=== PATIENT | male | born 1935 | race Caucasian/White ===

== ENCOUNTER 2019-08-08 15:30 | Inpatient (IN) | payer MEDICARE, OTHER ==
[~2019-08-08] VITALS: Ht 180.3 cm; Wt 75.8 kg
--- NOTE | 2019-08-08 16:04 | Emergency Department Note ---
History of Present Illnes History of Present Illness Chief Complaint: General Medicine Complaints History of Present Illness This is a 83 year old male arrives to ED with generalized malaise and weakness for the past one week. Chief Complaint Comment Patient in from home with complaints of general malaise, fatigue, weakness and fever for the past week. Patient denies cough, SOB, chills, body aches and nausea and vomiting. Patient does report a decreased appetite but no loss of taste or smell. Historian: Patient Arrival Mode: Car Onset (how long ago): day(s) Severity: mild Onset quality: gradual Duration (how long): day(s) Timing of current episode: intermittent Progression: worsening (BENNIE BILLINGS DO) Past Medical/Family History Physician Review I have reviewed the patient's past medical and family history. Any updates have been documented here. (BENNIE BILLINGS DO) Past Medical History Recent Fever: Yes Clinical Suspicion of Infectio: No New/Unexplained Change in Ment: No Past Medical History: Hypertension Past Surgical History: Hernia Repair (BENNIE BILLINGS DO) Recent Fever: Yes Clinical Suspicion of Infectio: Yes Past Medical History: TIA (JOANN ESCALANTE DO) Social History Smoking Cessation: Never Smoker Alcohol Use: None Any Illegal Drug Use: No (JOANN ESCALANTE DO) Other Last Tetanus: unknown (BENNIE BILLINGS DO) Review of Systems Review of Systems Constitutional: Reports fever, Reports malaise EENTM: Reports no symptoms Cardiovascular: Reports no symptoms Respiratory: Reports no symptoms Gastrointestinal: Reports no symptoms Genitourinary: Reports no symptoms Musculoskeletal: Reports no symptoms Integumentary: Reports no symptoms Neurological: Reports no symptoms Psychological: Reports no symptoms Endocrine: Reports no symptoms Hematological/Lymphatic: Reports no symptoms (JOANN ESCALANTE DO) Physical Exam Related Data Allergies: Coded Allergies: No Known Allergies (Unverified , 08/08/19) Triage Vital Signs Vital Signs Date Time Temp Pulse Resp B/P (MAP) Pulse Ox O2 Delivery O2 Flow Rate FiO2 08/08/19 15:48 98.8 82 26 126/81 98 Vital signs reviewed: Yes (BENNIE BILLINGS DO) Triage Vital Signs Vital Signs Date Time Temp Pulse Resp B/P (MAP) Pulse Ox O2 Delivery O2 Flow Rate FiO2 08/08/19 15:48 98.8 82 26 126/81 98 Vital signs reviewed: Yes (AVAJOANN DO) Physical Exam CONSTITUTIONAL Constitutional: Present well-developed HENT HENT: Present normocephalic, Present atraumatic, Present oropharynx clear/moist, Present nose normal HENT L/R: Present left ext ear normal, Present right ext ear normal EYES Eyes: Reports PERRL, Reports conjunctivae normal NECK Neck: Present ROM normal PULMONARY Pulmonary: Present effort normal, Present breath sounds normal CARDIOVASCULAR Cardiovascular: Present regular rhythm, Present heart sounds normal, Present capillary refill normal, Present normal rate GASTROINTESTINAL Abdominal: Present soft, Present nontender, Present bowel sounds normal GENITOURINARY Genitourinary: Present exam deferred SKIN Skin: Present warm, Present dry MUSCULOSKELETAL Musculoskeletal: Present ROM normal NEUROLOGICAL Neurological: Present alert, Present oriented x 3, Present no gross motor or sensory deficits PSYCHOLOGICAL Psychological: Present mood/affect normal, Present judgement normal (BENNIE BILLINGS DO) Constitutional: Present ill appearing HENT: Present normocephalic, Present atraumatic, Present oropharynx clear/moist, Present nose normal HENT L/R: Present left ext ear normal, Present right ext ear normal Eyes: Reports PERRL, Reports conjunctivae normal Neck: Present ROM normal Pulmonary: Present effort normal, Present breath sounds normal Cardiovascular: Present regular rhythm, Present heart sounds normal, Present capillary refill normal, Present normal rate Abdominal: Present soft, Present nontender, Present bowel sounds normal Genitourinary: Present exam deferred Skin: Present warm, Present dry Musculoskeletal: Present ROM normal Neurological: Present alert, Present oriented x 3, Present no gross motor or sensory deficits Psychological: Present mood/affect normal, Present judgement normal (JAMES AmandaJOANN DO) Results Laboratory Lab results reviewed: Yes Laboratory comments Laboratory Tests Test 08/08/19 17:25 08/08/19 16:08 White Blood Count 5.10 x10e3/uL (4.8-10.8) Red Blood Count 4.76 x10e6/uL (4.3-5.7) Hemoglobin 14.6 g/dL (14.0-18.0) Hematocrit 43.6 % (38.2-49.6) Mean Corpuscular Volume 91.6 fL (81-99) Mean Corpuscular Hemoglobin 30.7 pg (28-32) Mean Corpuscular Hemoglobin Concent 33.5 g/dL (31-35) Red Cell Distribution Width 12.8 % (11.7-14.4) Platelet Count 164 x10e3/uL (140-360) Neutrophils (%) (Auto) 73.9 % (38.7-80.0) Lymphocytes (%) (Auto) 15.1 % (18.0-39.1) Monocytes (%) (Auto) 10.4 % (4.4-11.3) Eosinophils (%) (Auto) 0.0 % (0.0-6.0) Basophils (%) (Auto) 0.2 % (0.0-1.0) Neutrophils # (Auto) 3.8 (2.1-6.9) Lymphocytes # (Auto) 0.8 (1.0-3.2) Monocytes # (Auto) 0.5 (0.2-0.8) Eosinophils # (Auto) 0.0 (0.0-0.4) Basophils # (Auto) 0.0 (0.0-0.1) Absolute Immature Granulocyte (auto 0.02 x10e3/uL (0-0.1) Sodium Level 135 mmol/L (136-145) Potassium Level 4.0 mmol/L (3.5-5.1) Chloride Level 102 mmol/L (98-107) Carbon Dioxide Level 25 mmol/L (22-29) Anion Gap 12.0 mmol/L (8-16) Blood Urea Nitrogen 18 mg/dL (7-26) Creatinine 1.07 mg/dL (0.72-1.25) Estimat Glomerular Filtration Rate > 60 ML/MIN (60-) BUN/Creatinine Ratio 17 (6-25) Glucose Level 137 mg/dL (74-118) Calcium Level 8.7 mg/dL (8.4-10.2) Total Bilirubin 0.5 mg/dL (0.2-1.2) Aspartate Amino Transf (AST/SGOT) 47 IU/L (5-34) Alanine Aminotransferase (ALT/SGPT) 40 IU/L (0-55) Alkaline Phosphatase 49 IU/L (40-150) Creatine Kinase 81 IU/L (30-200) Creatine Kinase MB 0.60 ng/mL (0-5.0) Troponin I 0.179 ng/mL (0-0.300) Total Protein 6.9 g/dL (6.5-8.1) Albumin 3.7 g/dL (3.5-5.0) Globulin 3.2 g/dL (2.3-3.5) Albumin/Globulin Ratio 1.2 (0.8-2.0) (JOANN ESCALANTE DO) Imaging Imaging results reviewed: Yes Impressions [place] [address] Patient Name: CHARLEY SERRANO MR #: [id number] : 1935 Age/Sex: 83/M Req #: [id number] Adm Physician: Ordered by: BENNIE BILLINGS DO Report #: [id number] Location: ER Room/Bed: Procedure: [id number] DX/CHEST SINGLE (PORTABLE) Exam Date: 08/08/19 Exam Time: 1610 REPORT STATUS: Signed EXAMINATION: CHEST SINGLE (PORTABLE) INDICATION: Chest pain COMPARISON: None FINDINGS: AP view TUBES and LINES: None. LUNGS: Bilateral lung base opacities, right greater than left. PLEURA: No pleural effusion or pneumothorax. HEART AND MEDIASTINUM: The cardiomediastinal silhouette is unremarkable. BONES AND SOFT TISSUES: No acute osseous lesion. Advanced shoulder degenerative change. Soft tissues are unremarkable. UPPER ABDOMEN: Elevated right hemidiaphragm. IMPRESSION: Bilateral lung base opacities most suggestive of scarring or atelectasis. Pneumonia, notably in the right lower lobe, may appear similar. Signed by: Reed Chris MD on 08/08/2019 4:49 PM Dictated By: REED CHRIS MD Transcribed By: ALEX on 08/08/191648 COPY TO: BENNIE BILLINGS DO~ (JOANN ESCALANTE DO) Assessment & Plan Medical Decision Making MDM 83 yom with fever and myalgias of several days duration. COVID-19 infection highly suspected and confirmed. Plan to admit for inpatient evaluation and respiratory management (JOANN ESCALANTE DO) Assessment & Plan Final Impression: (1) Upper respiratory tract infection due to COVID-19 virus (JOANN ESCALANTE DO) Depart Disposition: ADMITTED Last Vital Signs Date Time Temp Pulse Resp B/P (MAP) Pulse Ox O2 Delivery O2 Flow Rate FiO2 08/08/19 15:48 98.8 82 26 126/81 98 (BENNIE BILLINGS DO) Last Vital Signs Date Time Temp Pulse Resp B/P (MAP) Pulse Ox O2 Delivery O2 Flow Rate FiO2 08/08/19 21:57 79 22 111/67 96 08/08/19 20:04 98.9 (JOANN ESCALANTE DO) Home Meds Reported Medications Amlodipine Besylate (AMLODIPINE BESYLATE) 2.5 Mg Tablet, PO DAILY 08/09/19 Medications in the ED Acetaminophen 650 mg ONCE ONCE PO Last administered on 08/08/19at 19:20; Admin Dose 650 MG; Start 08/08/19 at 19:15; Stop 08/08/19 at 19:16; Status DC Acetaminophen 650 mg STK-MED ONCE .ROUTE ; Start 08/08/19 at 19:21; Stop 08/08/19 at 19:16; Status DC Azithromycin 250 ml @ 200 mls/hr DAILY IV ; Start 08/09/19 at 09:00; Stop 08/16/19 at 08:59; Status UNV (JOANN ESCALANET DO) BENNIE BILLINGS DO Aug 08, 2019 16:04 JOANN ESCALANTE DO Aug 08, 2019 22:48
[2019-08-08 16:17] LABS: BASOPHILS % 0.2 % (0.0-1.0); HEMATOCRIT 43.6 % (38.2-49.6); HEMOGLOBIN 14.6 g/dL (14.0-18.0); LYMPHOCYTES # (AUTO) 0.8 (1.0-3.2); LYMPHOCYTES % 15.1 % (18.0-39.1); MEAN CORPUSCULAR HEMOGLOBIN 30.7 pg (28-32); MEAN CORPUSCULAR HGB CONC 33.5 g/dL (31-35); MEAN CORPUSCULAR VOLUME 91.6 fL (81-99); MONOCYTES # (AUTO) 0.5 (0.2-0.8); MONOCYTES % 10.4 % (4.4-11.3); NEUTROPHILS # (AUTO) 3.8 (2.1-6.9); NEUTROPHILS % 73.9 % (38.7-80.0); PLATELET COUNT 164 x10e3/uL (140-360); RED BLOOD COUNT 4.76 x10e6/uL (4.3-5.7); RED CELL DISTRIBUTION WIDTH 12.8 % (11.7-14.4)
[2019-08-08 16:37] LABS: ALANINE AMINOTRANSFERASE 40 IU/L (0-55); ALBUMIN 3.7 g/dL (3.5-5.0); ALBUMIN/GLOBULIN RATIO 1.2 (0.8-2.0); ALKALINE PHOSPHATASE 49 IU/L (40-150); BLOOD UREA NITROGEN 18 mg/dL (7-26); BUN/CREATININE RATIO 17 (6-25); CALCIUM 8.7 mg/dL (8.4-10.2); CARBON DIOXIDE 25 mmol/L (22-29); CHLORIDE 102 mmol/L (98-107); CREATINE KINASE 81 IU/L (30-200); CREATININE, SERUM 1.07 mg/dL (0.72-1.25); EST GLOMERULAR FILTRATION RATE > 60 ML/MIN (60-); GLUCOSE 137 mg/dL (74-118); SODIUM 135 mmol/L (136-145)
--- NOTE | 2019-08-08 16:53 | Diagnostic Imaging Report ---
EXAMINATION: CHEST SINGLE (PORTABLE) INDICATION: Chest pain COMPARISON: None FINDINGS: AP view TUBES and LINES: None. LUNGS: Bilateral lung base opacities, right greater than left. PLEURA: No pleural effusion or pneumothorax. HEART AND MEDIASTINUM: The cardiomediastinal silhouette is unremarkable. BONES AND SOFT TISSUES: No acute osseous lesion. Advanced shoulder degenerative change. Soft tissues are unremarkable. UPPER ABDOMEN: Elevated right hemidiaphragm. IMPRESSION: Bilateral lung base opacities most suggestive of scarring or atelectasis. Pneumonia, notably in the right lower lobe, may appear similar. Signed by: Reed Stubbs MD on 08/08/2019 4:49 PM
[2019-08-08] MEDS ORDERED: ACETAMINOPHEN 325 MG TAB PO ONE (19:15)
[2019-08-08] MEDS ORDERED: ACETAMINOPHEN 325 MG TAB ONE (19:21)
[2019-08-08] MEDS: AZITHROMYCIN 500MG/NS 250 ML 250 ML IV SCH (23:02)
[2019-08-08] MEDS ORDERED: ACETAMINOPHEN 325 MG TAB PO PRN (23:30)
[2019-08-09] VITALS (10 sets, daily range): BP systolic 92–134; BP diastolic 65–81
--- NOTE | 2019-08-09 03:46 | NUR ---
Spoke with Dr. Serra regarding consult for new admit. Dr. Serra returned call from ED MD.
[2019-08-09 05:29] LABS: BASOPHILS % 0.2 % (0.0-1.0); EOSINOPHILS % 0.2 % (0.0-6.0); HEMATOCRIT 43.1 % (38.2-49.6); HEMOGLOBIN 14.2 g/dL (14.0-18.0); LYMPHOCYTES # (AUTO) 0.8 (1.0-3.2); LYMPHOCYTES % 15.8 % (18.0-39.1); MEAN CORPUSCULAR HEMOGLOBIN 30.8 pg (28-32); MEAN CORPUSCULAR HGB CONC 32.9 g/dL (31-35); MEAN CORPUSCULAR VOLUME 93.5 fL (81-99); MONOCYTES # (AUTO) 0.6 (0.2-0.8); MONOCYTES % 11.8 % (4.4-11.3); NEUTROPHILS # (AUTO) 3.7 (2.1-6.9); NEUTROPHILS % 71.4 % (38.7-80.0); PLATELET COUNT 161 x10e3/uL (140-360); RED BLOOD COUNT 4.61 x10e6/uL (4.3-5.7); RED CELL DISTRIBUTION WIDTH 12.8 % (11.7-14.4)
[2019-08-09 05:46] LABS: ALANINE AMINOTRANSFERASE 36 IU/L (0-55); ALBUMIN 3.5 g/dL (3.5-5.0); ALBUMIN/GLOBULIN RATIO 1.2 (0.8-2.0); ALKALINE PHOSPHATASE 46 IU/L (40-150); ANION GAP 12.9 mmol/L (8-16); BLOOD UREA NITROGEN 16 mg/dL (7-26); BUN/CREATININE RATIO 20 (6-25); CALCIUM 8.3 mg/dL (8.4-10.2); CARBON DIOXIDE 23 mmol/L (22-29); CHLORIDE 104 mmol/L (98-107); CREATININE, SERUM 0.82 mg/dL (0.72-1.25); EST GLOMERULAR FILTRATION RATE > 60 ML/MIN (60-); GLUCOSE 101 mg/dL (74-118); POTASSIUM 3.9 mmol/L (3.5-5.1); SODIUM 136 mmol/L (136-145)
--- NOTE | 2019-08-09 06:05 | NUR ---
Spoke with Dr. Angela Mcclain re: new consult for patient.
[2019-08-09] MEDS ORDERED: AMLODIPINE BESIL1 GM (06:21)
[2019-08-09] MEDS ORDERED: AMLODIPINE BES2.5 MG PO (06:21)
[2019-08-09] MEDS ORDERED: SODIUM CHLORIDE 0.9% 250ML 250 ML ONE (08:03)
[2019-08-09] MEDS: AZITHROMYCIN 500MG/NS 250 ML 250 ML IV SCH (08:54)
[2019-08-09] MEDS ORDERED: AZITHROMYCIN 500MG/NS 250 ML 250 ML IV SCH (09:00)
[2019-08-09] MEDS ORDERED: ZOLPIDEM TARTRATE 5 MG TAB PO PRN (11:30)
[2019-08-09] MEDS: CEFTRIAXONE SOD 1 GM/NS 50 ML 50 ML IV SCH (11:46)
--- NOTE | 2019-08-09 12:46 | Consultation ---
DATE OF CONSULTATION: Pulmonary Critical Care Consultation HISTORY OF PRESENT ILLNESS: The patient is reporting fatigue and malaise for the past week. He is unsure about fevers. He denies shortness of breath. He has minimal cough. He has no gastrointestinal symptoms. PAST MEDICAL HISTORY: 1. Borderline diabetes. 2. Hypertension. PAST SURGICAL HISTORY: Noncontributory. ALLERGIES: NO KNOWN DRUG ALLERGIES. FAMILY HISTORY: Noncontributory. SOCIAL HISTORY: The patient has never been a smoker. He is not a drinker. REVIEW OF SYSTEMS: He denies fevers. He complains of malaise and fatigue for about a week. He has no headache. He has no neck pain. He is not complaining of cough. There is no wheezing. He has no chest pain. He is not having any nausea or vomiting. He has no leg edema. PHYSICAL EXAMINATION: VITAL SIGNS: The patient is afebrile. The blood pressure is 104/65, saturation is 96% on 2 L, and the pulse is 75. HEENT: Shows no facial swelling or erythema. CARDIAC: Reveals regular rate and rhythm with normal S1 and S2. LUNGS: Auscultation of lungs reveals rhonchorous breath sounds bilaterally. There is no wheezing. ABDOMEN: Soft and nontender. There is no rebound or guarding. EXTREMITIES: Shows no leg edema or calf tenderness. There is no cyanosis or clubbing. SKIN: Shows no rashes. NEUROLOGICAL: Shows no focal abnormalities. LABORATORY DATA: White blood cell count is 5.2 and the hemoglobin is 14.2. The platelet count is 161. BUN to creatinine ratio is 16 to 0.82. Other electrolytes are within normal limits. RADIOGRAPHIC DATA: Shows bilateral pulmonary infiltrates suggestive of pneumonia. IMPRESSION: 1. Viral pneumonia and COVID-19 infection. 2. Mild hypertension. 3. Acute kidney injury. PLAN: 1. The patient will continue on Zithromax and Rocephin. 2. Lovenox for DVT prophylaxis. 3. Echocardiogram. 4. Discussed use of remdesivir and dexamethasone with Infectious Disease. 5. Out of bed as tolerated. 6. Oxygen is needed. Antoine Mcclain MD LM/CHIQUIS /[id number]
[2019-08-09] MEDS ORDERED: GUAIFENESIN/CODEINE 10 ML CUP PO PRN (15:15)
[2019-08-09] MEDS ORDERED: HYDRALAZINE HCL 20 MG/ML VIAL IV PRN (15:15)
[2019-08-09] MEDS ORDERED: BENZONATATE 100 MG CAP PO PRN (15:15)
[2019-08-09] MEDS ORDERED: DOCUSATE SODIUM 100 MG CAP PO PRN (15:15)
[2019-08-09] MEDS ORDERED: HYDROCODONE/APAP 5MG-325MG TAB PO PRN (15:15)
[2019-08-09] MEDS: ENOXAPARIN SOD INJ 40 MG/0.4 ML SYR SC SCH (16:15)
[2019-08-09] MEDS: ASCORBIC ACID 500 MG TAB PO SCH (16:15)
[2019-08-09] MEDS: ACETAMINOPHEN 325 MG TAB PO PRN (16:53)
--- NOTE | 2019-08-09 17:53 | Consultation ---
DATE OF CONSULTATION: REASON FOR CONSULTATION: COVID-19 pneumonia. HISTORY OF PRESENT ILLNESS: This is a very pleasant 83-year-old gentleman, history of hypertension, who is otherwise healthy. He has been going to several bars recently. He started to feel really bad the last week or so. No specific shortness of breath, but malaise and really fatigued and feverish. His daughter, who was is an RN told him to come to the hospital to be checked because he was getting worse in last couple days. In the emergency room, he was evaluated and he was positive for COVID-19. The patient is being admitted. PAST MEDICAL HISTORY: Hypertension. PAST SURGICAL HISTORY: Denies. ALLERGIES: NKA. SOCIAL HISTORY: There is no smoking, drug abuse, or alcohol abuse. FAMILY HISTORY: Otherwise unremarkable. REVIEW OF SYSTEMS: Beside the fatigue, feeling feverish, feeling a little bit short of breath. Otherwise he is okay. PHYSICAL EXAMINATION: GENERAL: Currently alert and oriented. VITAL SIGNS: Stable, afebrile. HEENT: He is not icteric. NECK: Supple. CHEST: Few crackles bilateral bases. HEART: S1 and S2. No S3, S4, or murmur. ABDOMEN: Soft. Bowel sounds present. No tenderness. EXTREMITIES: No edema. SKIN: No rash. DIAGNOSTIC DATA: Chest x-ray showed bilateral lung base opacities. IMPRESSION: COVID-19, present on admission, COVID-19 pneumonia. Concerned about superimposed bacterial pneumonia. He is currently on 2 L. We will put him on Rocephin and azithromycin. Plan on 5 days course. Also, low dose of Lovenox for prophylaxis. Vitamin C and zinc and vitamin D supplement. We will assess daily. Discussed with the patient. Discussed with his daughter. MD WAYLON Lubin/CHIQUIS /[id number]
--- NOTE | 2019-08-09 19:08 | NUR ---
Received report from 7a-7p nurse. Reported ECHO not done. will follow up.
--- NOTE | 2019-08-09 19:43 | History and Physical ---
CHIEF COMPLAINT: Cough, shortness of breath. HISTORY OF PRESENT ILLNESS: An 83-year-old male, history of hypertension, comes into the ED with 5 to 7 days history of cough, congestion, and shortness of breath. The patient was found to be coronavirus positive. The patient reports going to a local dance for dancing. He reportedly dance 3 times per week. He feels that he may have contracted there. Denies any chest pain, palpitation, nausea, or vomiting. Reports shortness of breath, cough, and an elevated fever at home. The patient is seen and evaluated at bedside in the medical floor. He is currently doing well with no other issues at this time. REVIEW OF SYSTEMS: Pertinent positives: Shortness of breath, cough, congestion, lethargy. The rest of 14-point review of systems are reviewed with the patient and are negative. ALLERGIES: NO KNOWN DRUG ALLERGIES. HOME MEDICATIONS: Amlodipine 2.5 mg daily. PAST MEDICAL HISTORY: Hypertension. PAST SURGICAL HISTORY: Reports none. FAMILY HISTORY: Hypertension and diabetes. SOCIAL HISTORY: No drugs. No alcohol. Does not smoke. Good social support. PHYSICAL EXAMINATION: VITAL SIGNS: Temperature is 98.6, pulse 81 respiratory rate is 17, blood pressure 111/64, and pulse ox 94% on room air. GENERAL: Not in acute distress. Alert and oriented x3. Cooperative on examination. HEENT: Head; normocephalic, atraumatic. Eyes; pupils are equal, round, and reactive to light bilaterally. Extraocular movements intact bilaterally. Throat; no evidence of erythema or exudates in the posterior pharynx. Has poor dentition. NECK: Supple. Good range of motion. PULMONARY: Clear to auscultation bilaterally. No wheezing, no rales, no rhonchi, no crackles appreciated. CARDIOVASCULAR: Positive S1 and S2. No murmurs, rubs, or gallops appreciated. ABDOMEN: Soft, nondistended, and nontender to palpation. Bowel sounds present. MUSCULOSKELETAL: Strength is 5/5 throughout. No evidence of any muscle deficits on examination. No weakness appreciated. NEUROLOGIC: Cranial nerves 2 through 12 grossly intact. No evidence of any neurological deficits on exam. SKIN: Intact. Warm to touch. Good cap refill. PSYCHIATRIC: Normal affect and mood. EXTREMITIES: No edema. Good range of motion throughout. LABORATORY DATA: Show white count 5.1, hemoglobin 14, hematocrit is 43, and platelets of 161. Chemistry; sodium 136, potassium 3.9, chloride 104, bicarb 23, anion gap of 12, BUN is 16, creatinine is 0.82, glucose 101, and calcium is 8.3. Total bilirubin is 0.5, AST 43, ALT 36, and alkaline phosphatase 46. Troponin 0.179. Albumin 3.5. Serologies; coronavirus was detected. IMAGING STUDIES: Bilateral lung base opacities most suggestive of scarring or atelectasis. Pneumonia notably in the right lower lobe may appear similarly. IMPRESSION: 1. Mild shortness of breath secondary to COVID-19 pneumonia/viral pneumonia. 2. Hypertension. 3. Mild acute kidney injury. PLAN: At this time, continue with IV antibiotics. He is on ProAir. As for remdesivir and dexamethasone. The patient is doing very well. Less likely, we will need that at this current moment, but we will defer this to ID. We will trend troponins. Resume same home medications. Lovenox for DVT prophylaxis. Add anti-tussives. Get PT/OT evaluation. MD DAVID Araujo/MODL /[id number]
--- NOTE | 2019-08-09 22:20 | NUR ---
Resumed care of patient. Patient resting quietly in bed, respirations even and unlabored, no s/s of distress at this time. Bed locked and in lowest position, side rails up x3, call light and belongings placed within reach. All safety measures in place. Will continue to monitor.
[2019-08-10] VITALS (8 sets, daily range): BP systolic 110–129; BP diastolic 53–84
[2019-08-10] MEDS: ACETAMINOPHEN 325 MG TAB PO PRN (03:51)
[2019-08-10 06:01] LABS: BASOPHILS % 0.2 % (0.0-1.0); EOSINOPHILS % 0.2 % (0.0-6.0); HEMOGLOBIN 13.7 g/dL (14.0-18.0); LYMPHOCYTES # (AUTO) 0.8 (1.0-3.2); LYMPHOCYTES % 15.4 % (18.0-39.1); MEAN CORPUSCULAR HEMOGLOBIN 31.3 pg (28-32); MEAN CORPUSCULAR HGB CONC 33.4 g/dL (31-35); MEAN CORPUSCULAR VOLUME 93.6 fL (81-99); MONOCYTES # (AUTO) 0.8 (0.2-0.8); MONOCYTES % 14.5 % (4.4-11.3); NEUTROPHILS # (AUTO) 3.7 (2.1-6.9); PLATELET COUNT 164 x10e3/uL (140-360); RED BLOOD COUNT 4.38 x10e6/uL (4.3-5.7); RED CELL DISTRIBUTION WIDTH 12.8 % (11.7-14.4)
[2019-08-10 06:38] LABS: ALANINE AMINOTRANSFERASE 28 IU/L (0-55); ALBUMIN 3.3 g/dL (3.5-5.0); ALBUMIN/GLOBULIN RATIO 1.1 (0.8-2.0); ALKALINE PHOSPHATASE 43 IU/L (40-150); ANION GAP 11.9 mmol/L (8-16); BLOOD UREA NITROGEN 15 mg/dL (7-26); BUN/CREATININE RATIO 18 (6-25); CALCIUM 8.1 mg/dL (8.4-10.2); CARBON DIOXIDE 24 mmol/L (22-29); CHLORIDE 104 mmol/L (98-107); CREATININE, SERUM 0.82 mg/dL (0.72-1.25); EST GLOMERULAR FILTRATION RATE > 60 ML/MIN (60-); GLUCOSE 93 mg/dL (74-118); POTASSIUM 3.9 mmol/L (3.5-5.1); SODIUM 136 mmol/L (136-145)
[2019-08-10] MEDS: ASCORBIC ACID 500 MG TAB PO SCH ×2 (08:53→16:50)
[2019-08-10] MEDS: ZINC SULFATE 220 MG CAP PO SCH (08:53)
[2019-08-10] MEDS: CHOLECALCIFEROL 400 UNIT TAB PO SCH (08:53)
[2019-08-10] MEDS: AZITHROMYCIN 500MG/NS 250 ML 250 ML IV SCH (08:53)
[2019-08-10] MEDS: CEFTRIAXONE SOD 1 GM/NS 50 ML 50 ML IV SCH (12:25)
--- NOTE | 2019-08-10 14:32 | Progress Note ---
DATE: Pulmonary Critical Care Progress Note SUBJECTIVE: The patient is more fatigued. He had some gastrointestinal symptoms. He denies cough or dyspnea. He is not having any chest pain. PHYSICAL EXAMINATION: VITAL SIGNS: The patient is afebrile. The blood pressure is 110/53, saturation is 96%. The pulse is 73. HEENT: No facial swelling or erythema. CARDIAC: Regular rate and rhythm with normal S1, S2. LUNGS: Auscultation of lungs reveals rhonchorous breath sounds bilaterally. There is no wheezing. ABDOMEN: Soft, nontender. There is no rebound or guarding. EXTREMITIES: No leg edema or calf tenderness. There is no cyanosis or clubbing. SKIN: No rashes. LABORATORY DATA: BUN to creatinine ratio is normal. The sodium is 136 and the total protein is 6.2. The albumin is 3.3. The white blood cell count is 5.38 and hemoglobin is 13.7, and the platelet count is 164. IMPRESSION: 1. Viral pneumonia and coronavirus disease-19 infection. 2. Gastroenteritis. 3. Acute kidney injury. PLAN: 1. Stop Rocephin and continue Zithromax because of GI symptoms. 2. Monitor electrolytes and use IV fluids as needed. 3. Await echocardiogram. 4. Lovenox. 5. Physical therapy evaluation. Antoine Mcclain MD [facility]/MODL /[id number]
[2019-08-10] MEDS: ENOXAPARIN SOD INJ 40 MG/0.4 ML SYR SC SCH (16:50)
[2019-08-10] MEDS ORDERED: BISMUTH SUBSALICYLATE 262 MG/15 ML 8OZ BTL PO PRN (17:30)
[2019-08-10] MEDS ORDERED: CHOLESTYRAMINE 4 GM PACKET PO PRN (17:30)
--- NOTE | 2019-08-10 17:30 | NUR ---
Nutrition Screen Note RD Recommendation for Physician: -Continue current diet as ordered -If PO intake <50% of meals, offer Ensure Enlive Plan of Care: RD following, monitoring for tolerance and adequacy Nutrition reason for involvement: Nutrition Risk Trigger MST 3 Primary Diagnose(s): COVID-19 PMH: HTN Ht: 71 in Wt:167 lb BMI: 23.4 kg/m2 IBW:[address] Assessment: (08/10/19) Chart reviewed. Labs and meds reviewed. Pt is an 83 year old male admitted with COVID-19. Unable to enter room due to isolation precautions; therefore, attempted to call pt over the phone but he did not answer. There are no previous weights in chart and meal intake is not recorded. Unable to complete nutrition assessment at this time. Will continue to monitor Current Diet: cardiac Malnutrition Evaluation (08/10/19) Unable to assess. Will re-evaluate at follow-up as appropriate. Diet Education Needs Assessment: RD is available for diet education as needed Nutrition Care Level: low Signed: Joanna Burns, RD, LD
--- NOTE | 2019-08-10 18:03 | Progress Note ---
DATE: SUBJECTIVE: Mr. Lynn is feeling fatigued today. He is having diarrhea. He has slightly cough. No fever. No chills. REVIEW OF SYSTEMS: Otherwise, there is nothing new. LABORATORY DATA: Reviewed. PHYSICAL EXAMINATION: VITAL SIGNS: His temperature 100.3, heart rate 87, and respiration 18. HEENT: He is not icteric. NECK: Supple. CHEST: Crackles. HEART: S1 and S2. No S3, S4, or murmur. ABDOMEN: Soft. IMPRESSION: 1. Diarrhea, could be drug-related antibiotic, so we will discontinue azithromycin, we will discontinue Rocephin. 2. Also, could be gastroenteritis from COVID-19. 3. COVID-19 pneumonia. 4. Debility. 5. I am going to give him Pepto-Bismol one p.o. q.4 hours p.r.n., Questran one pack p.o. b.i.d. p.r.n. Hold off antibiotic for now. Reassess in the morning. Discussed with the patient. Discussed with the family. We will follow. MD WAYLON uLbin/CHIQUIS /[id number]
--- NOTE | 2019-08-10 19:20 | NUR ---
Resumed care of patient. Patient awake and resting in bed, vital signs stable, no s/s of distress at this time. Bed locked and in lowest position, side rails upx3, call light placed within reach. Patient instructed to call for assistance if needed, verbalized understanding. All safety measures in place. Will continue to monitor.
[2019-08-10] MEDS ORDERED: ONDANSETRON HCL INJ 2MG/ML 2ML 2 MG/ML VIAL IV PRN (19:45)
--- NOTE | 2019-08-10 19:45 | NUR ---
Dr. Morgan here to see patient. Received orders for Zofran 4 mg IV Q6H PRN.
--- NOTE | 2019-08-10 21:14 | Progress Note ---
DATE: 08/10/2019 Medicine Progress Note SUBJECTIVE: The patient is doing much better today with no complaints. He is on room air. No overnight events. PHYSICAL EXAMINATION: VITAL SIGNS: Temperature 99.2, pulse 83, respiratory rate is 20, blood pressure 111/75, and pulse ox 96% on room air. GENERAL: Not in acute distress. Alert and oriented x3. Cooperative on examination. HEENT: Head; normocephalic, atraumatic. Eyes; pupils are equal, round, and reactive to light bilaterally. Extraocular movements intact bilaterally. Throat; no evidence of erythema or exudates in the posterior pharynx. Has poor dentition. NECK: Supple. Good range of motion. PULMONARY: Clear to auscultation bilaterally. No wheezing, no rales, no rhonchi, no crackles appreciated. CARDIOVASCULAR: Positive S1 and S2. No murmurs, rubs, or gallops appreciated. ABDOMEN: Soft, nondistended, and nontender to palpation. Bowel sounds present. MUSCULOSKELETAL: Strength is 5/5 throughout. No evidence of any muscle deficits on examination. No weakness appreciated. NEUROLOGIC: Cranial nerves 2 through 12 grossly intact. No evidence of any neurological deficits on exam. SKIN: Intact. Warm to touch. Good cap refill. PSYCHIATRIC: Normal affect and mood. EXTREMITIES: No edema. Good range of motion throughout. LABORATORY FINDINGS: Show white count 5.3, hemoglobin 13.7, hematocrit is 41, and platelets of 164. Chemistry; sodium 136, potassium 3.9, chloride 104, bicarb 24, anion gap of 11.9, BUN is 15, creatinine is 0.82, and calcium is 8.1. LFTs within normal range. Albumin 3.3. IMPRESSION: 1. COVID-19 pneumonia/viral pneumonia. 2. Shortness of breath secondary to #1, now on room air. 3. Mild acute kidney injury. 4. Diarrhea. PLAN: At this time, antibiotics were discontinued by Infectious Disease. He was placed on some Pepto-Bismol for his diarrhea. We will monitor very closely. He is on Questran p.r.n. as well. He is otherwise doing very well. We will see how he does tomorrow. Get a.m. labs. If he is stable, we can discharge him tomorrow. We will talk with the family as well to see if they are comfort level. He is on Lovenox for DVT prophylaxis. MD DAVID Araujo/CHIQUIS /[id number]
[2019-08-11] VITALS (8 sets, daily range): BP systolic 110–147; BP diastolic 62–96
[2019-08-11 05:18] LABS: BASOPHILS % 0.2 % (0.0-1.0); EOSINOPHILS % 0.2 % (0.0-6.0); HEMATOCRIT 40.9 % (38.2-49.6); HEMOGLOBIN 13.7 g/dL (14.0-18.0); LYMPHOCYTES # (AUTO) 0.9 (1.0-3.2); MEAN CORPUSCULAR HEMOGLOBIN 30.4 pg (28-32); MEAN CORPUSCULAR HGB CONC 33.5 g/dL (31-35); MEAN CORPUSCULAR VOLUME 90.7 fL (81-99); MONOCYTES # (AUTO) 0.7 (0.2-0.8); MONOCYTES % 12.8 % (4.4-11.3); NEUTROPHILS # (AUTO) 3.7 (2.1-6.9); PLATELET COUNT 191 x10e3/uL (140-360); RED BLOOD COUNT 4.51 x10e6/uL (4.3-5.7)
[2019-08-11 06:04] LABS: ANION GAP 14.9 mmol/L (8-16); BLOOD UREA NITROGEN 15 mg/dL (7-26); BUN/CREATININE RATIO 20 (6-25); CALCIUM 8.2 mg/dL (8.4-10.2); CARBON DIOXIDE 23 mmol/L (22-29); CHLORIDE 104 mmol/L (98-107); CREATININE, SERUM 0.76 mg/dL (0.72-1.25); EST GLOMERULAR FILTRATION RATE > 60 ML/MIN (60-); GLUCOSE 83 mg/dL (74-118); POTASSIUM 3.9 mmol/L (3.5-5.1); SODIUM 138 mmol/L (136-145)
[2019-08-11] MEDS: CHOLECALCIFEROL 400 UNIT TAB PO SCH (08:56)
[2019-08-11] MEDS: ASCORBIC ACID 500 MG TAB PO SCH ×2 (08:56→18:52)
[2019-08-11] MEDS: ZINC SULFATE 220 MG CAP PO SCH (08:56)
--- NOTE | 2019-08-11 14:12 | Progress Note ---
DATE: SUBJECTIVE: The patient has less dyspnea and no cough. He did have an episode of diarrhea. He also complains of some difficulty eating and decreased appetite. PHYSICAL EXAMINATION: VITAL SIGNS: The blood pressure is 122/96 and saturation is 96%. HEENT: Shows no facial swelling or erythema. CARDIAC: Reveals a regular rate and rhythm with normal S1 and S2. LUNGS: Auscultation of lungs reveals rhonchorous breath sounds bilaterally. There is no wheezing. ABDOMEN: Soft and nontender. There is no rebound or guarding. EXTREMITIES: Shows no leg edema or calf tenderness. There is no cyanosis or clubbing. SKIN: Shows no rashes. NEUROLOGICAL: Shows no focal abnormalities. LABORATORY DATA: White blood cell count is 5.3 and the hemoglobin is 13.7. The platelet count is 191. BUN to creatinine ratio is normal. Other electrolytes are within normal limits. IMPRESSION: 1. Viral pneumonia and COVID-19 infection. 2. Gastroenteritis. 3. Acute kidney injury. PLAN: 1. Okay for discharge home. 2. Medication for symptomatic relief for diarrhea. 3. Physical therapy. Antoine Mcclain MD [facility]/MODL /[id number]
--- NOTE | 2019-08-11 14:14 | NUR ---
CM called pt in room and explained IMM letter. He verbalized understanding. Signed copy in chart. Copy given to RN to give to pt.
--- NOTE | 2019-08-11 18:00 | NUR ---
Dr. Serra held discharge due to patient feeling faint upon ambulation. orders entered. dr alejandra made aware.
[2019-08-11] MEDS: ENOXAPARIN SOD INJ 40 MG/0.4 ML SYR SC SCH (18:52)
[2019-08-11 18:56] LABS: ABG HCO3 21 mmol/L (22-26); ABG PCO2 31 mmHg (35-45); ABG PH 7.44 (7.35-7.45); ABG PO2 59 mmHg (80-105)
--- NOTE | 2019-08-11 19:28 | Progress Note ---
DATE: SUBJECTIVE: Mr. Lynn was feeling better today. He was ready to discharge, however, he went to the restroom. In the restroom, had a bowel movement, he almost passed out and fell. He felt really oozy and came back to bed, almost fell again. He is currently feeling better. REVIEW OF SYSTEMS: At present time, he is just weak and oozy. He said he is feeling worse now than this morning. PHYSICAL EXAMINATION: GENERAL: He is currently alert and oriented. Does not seem to be in acute distress. VITAL SIGNS: Stable, currently afebrile. HEENT: Not icteric. NECK: Supple. CHEST: Clear. HEART: S1 and S2. No S3, S4, or murmur. ABDOMEN: Soft. IMPRESSION: Worsening condition, not so sure why. We will get an ABG, Doppler of bilateral lower extremities to rule out DVT. We will get echocardiogram. We will re-evaluate his O2 saturation again. He may need to go home with home oxygen. Discussed with the patient. Discussed with family. MD WAYLON Lubin/CH[facility]QUIS /[id number]
[2019-08-11] MEDS ORDERED: REMDESIVIR 200MG/NS 100ML 200 MG IV ONE (20:00)
[2019-08-12] VITALS (9 sets, daily range): BP systolic 112–121; BP diastolic 71–79
--- NOTE | 2019-08-12 00:55 | Progress Note ---
DATE: 08/11/2019 SUBJECTIVE: The patient was doing well when I evaluated him early this afternoon. He was not short of breath. He was saturating well on room air. No evidence of any diarrhea. Later in the day, the patient almost had a syncopal episode prompting cancelling the discharge. Cardiology was consulted. Discussed case with ID. PHYSICAL EXAMINATION: VITAL SIGNS: Temperature is 98.8, pulse 83, respiratory rate 20, blood pressure 144/75, pulse ox 94%, he is on 2 L nasal cannula now, earlier in the day when I evaluated him at approximately 1:30 his vitals were temperature 99.2, pulse 78, respiratory rate 19, blood pressure 116/75, pulse ox was 98% on room air. GENERAL: Not in acute distress, alert and oriented x3. Cooperative on exam. PULMONARY: Clear to auscultation bilaterally. No wheezing, rales, or rhonchi. No crackles appreciated. CARDIOVASCULAR: Positive S1, S2. No murmurs, rubs, or gallops appreciated. ABDOMEN: Soft, nondistended, and nontender to palpation. Bowel sounds present. MUSCULOSKELETAL: Strength is 5/5 throughout. No evidence of muscle deficits on examination. NEUROLOGICAL: Cranial nerves II through XII grossly intact. No evidence of any neurological deficits on exam. SKIN: Intact. Warm to touch. Good cap refill. PSYCHIATRIC: Normal affect and mood. EXTREMITIES: No edema. Good range of motion throughout. LABORATORY DATA: CBC stable. Chemistries were normal. Microbiology none. Imaging studies none. IMPRESSION: 1. COVID pneumonia/viral pneumonia. 2. Shortness of breath secondary to #1, was on room air, now on 2 L nasal cannula. 3. Acute kidney injury-resolved. 4. Diarrhea improving. PLAN: At this time, once again the patient was in the process of being discharged early this afternoon, but later in the day he had almost a syncopal episode in which he became very lightheaded. Discharge has been canceled. Spoke with ID and Pulmonary as well. He is on Pepto-Bismol for underlying diarrhea. Continue with symptomatic treatment. Cardiology has been consulted, 2D echo has been ordered. Continue with Lovenox for DVT prophylaxis. We will get morning chest x-ray and morning labs. Lower extremity venous Doppler ordered as well as 2D echo. Otherwise, we will monitor the patient very closely. Discussed plan of care with nursing staff and family. MD DAVID Araujo/CH[facility]QU[facility] /[id number]
[2019-08-12 06:25] LABS: BASOPHILS % 0.1 % (0.0-1.0); EOSINOPHILS % 0.1 % (0.0-6.0); HEMATOCRIT 41.9 % (38.2-49.6); LYMPHOCYTES # (AUTO) 0.9 (1.0-3.2); LYMPHOCYTES % 13.2 % (18.0-39.1); MEAN CORPUSCULAR HEMOGLOBIN 30.4 pg (28-32); MEAN CORPUSCULAR HGB CONC 33.4 g/dL (31-35); MEAN CORPUSCULAR VOLUME 91.1 fL (81-99); MONOCYTES # (AUTO) 0.8 (0.2-0.8); MONOCYTES % 11.5 % (4.4-11.3); NEUTROPHILS % 74.5 % (38.7-80.0); PLATELET COUNT 200 x10e3/uL (140-360); RED CELL DISTRIBUTION WIDTH 13.1 % (11.7-14.4)
[2019-08-12 06:42] LABS: ANION GAP 13.9 mmol/L (8-16); BLOOD UREA NITROGEN 17 mg/dL (7-26); BUN/CREATININE RATIO 22 (6-25); CALCIUM 8.6 mg/dL (8.4-10.2); CARBON DIOXIDE 23 mmol/L (22-29); CHLORIDE 105 mmol/L (98-107); CREATININE, SERUM 0.79 mg/dL (0.72-1.25); EST GLOMERULAR FILTRATION RATE > 60 ML/MIN (60-); GLUCOSE 86 mg/dL (74-118); POTASSIUM 3.9 mmol/L (3.5-5.1); SODIUM 138 mmol/L (136-145)
--- NOTE | 2019-08-12 07:53 | Diagnostic Imaging Report ---
Examination: Single AP view of the chest. COMPARISON: Portable chest 08/08/2019 INDICATION: Shortness of breath, COVID IMPRESSION: 1. Lines and Tubes: None 2. Stable elevation of the right hemidiaphragm, which may be due to eventration. Bilateral basal airspace opacities, which are essentially unchanged, likely reflecting atelectasis, however, pneumonia is also a consideration. Patchy airspace opacity in the left midlung is more prominent on today's exam, suggesting pneumonia 3. Cardiomediastinal silhouette is normal. Central venous congestion. 4. No acute bony abnormalities. Signed by: Dr. Eugene Shanks M.D. on 08/12/2019 7:50 AM
--- NOTE | 2019-08-12 08:50 | Consultation ---
DATE OF CONSULTATION: 08/12/2019 REASON FOR CONSULTATION: Rule out CHF and DVT. CHIEF COMPLAINT: Shortness of breath, COVID positive. HISTORY OF PRESENT ILLNESS: This is an 83-year-old male with history of hypertension and "prediabetes," the patient presents to the [facility] ER with complaints of shortness of breath, fevers, cough, chills, and weakness, was noted with COVID positive. The patient progressed slowly. However, yesterday evening, the patient apparently became more short of breath. Had an ABG done which showed pO2 of 59 on room air. He was placed on 2 L nasal cannula. Cardiology was consulted to rule out CHF/DVT. The patient interviewed over the phone given his COVID-19. Reports prior to coming in had several days of fevers, chills, shortness of breath, cough, and came into the ER for evaluation. However, yesterday reports was getting out of bed, felt very woozy and short of breath. Telemetry was extensively reviewed showing sinus rhythm. However, ABG was done showing acute hypoxemia. Also, there are reports that he has had multiple bouts of diarrhea. PAST MEDICAL HISTORY: Hypertension and "prediabetic." SURGICAL HISTORY: Several hernia repairs. SOCIAL HISTORY: He is single. He denies any alcohol use or tobacco use. FAMILY HISTORY: Positive for diabetes, hypertension, and cancer in his brother and sister. HOME MEDICATIONS: Amlodipine. REVIEW OF SYSTEMS: GENERAL: Reports positive fevers, chills, weakness. Denies any weight changes. SKIN: No rashes or bruises. HEENT: Positive for nausea. No vomiting. No blurred vision, double vision, epistaxis, sore throat, or swollen neck. CARDIAC: Denies any chest pain. Positive for dyspnea on exertion. Denies orthopnea, PND, or lower extremity edema. RESPIRATORY: Positive for shortness of breath, cough. Denies any hemoptysis. GI: Reports poor appetite. Positive for nausea. No vomiting. Positive for diarrhea. No melena or tarry bloody stools. : Denies any frequency, urgency, or hematuria. VASCULAR: Denies any lower extremity edema or claudication. MUSCULOSKELETAL: Positive for generalized joint pains or back pains. NEUROLOGIC: Denies any paralysis, fainting. Positive for near syncope yesterday. ENDOCRINE: Denies any heat or cold intolerance, polyuria, polydipsia, or polyphagia. LABORATORY DATA: ABG shows pH 7.44, pCO2 of 31, PaO2 of 59, and bicarb 21. Chemistry; sodium 138, potassium 3.9, chloride 105, bicarb 23, BUN 17, and creatinine 0.7. Troponin is 0.2 next 0.1. BNP is pending. Hematology; white count 6, hemoglobin 14, hematocrit 41, and platelets 200. COVID positive. Chest x-ray showing pneumonia notably in his right lower lobe. ASSESSMENT: 1. COVID positive/pneumonia. 2. Acute hypoxic respiratory failure. 3. Diarrhea. 4. Dizziness. PLAN: 1. The patient presents with shortness of breath, cough, fevers, chills, COVID with positive. Chest x-ray showing pneumonia. Management as per ID. 2. Echo has been ordered, has been done, will be reviewed by Cardiology attending. 3. Venous Doppler has been ordered by ID, will be reviewed by Cardiology attending. 4. DVT prophylaxis. 5. Further recommendations post evaluation of studies. Thank you very much for this consult. Dictated by Terrance Pearce NP Oralia Shepherd MD [facility] /[id number]
[2019-08-12] MEDS: ASCORBIC ACID 500 MG TAB PO SCH ×2 (09:23→17:00)
[2019-08-12] MEDS: CHOLECALCIFEROL 400 UNIT TAB PO SCH (09:23)
[2019-08-12] MEDS: ZINC SULFATE 220 MG CAP PO SCH (09:23)
[2019-08-12] MEDS ORDERED: REMDESIVIR 100MG/NS 100ML 100 MG IV SCH (14:00)
[2019-08-12] MEDS: ENOXAPARIN SOD INJ 40 MG/0.4 ML SYR SC SCH (17:00)
--- NOTE | 2019-08-12 17:00 | NUR ---
oxygen delivered to room.
--- NOTE | 2019-08-12 18:03 | Progress Note ---
DATE: SUBJECTIVE: The patient feels better. He is not complaining of dyspnea or fatigue. He is not having any diarrhea. PHYSICAL EXAMINATION: VITAL SIGNS: The patient is afebrile. The vital signs are stable. HEENT: Shows no facial swelling or erythema. CARDIAC: Reveals regular rate and rhythm with normal S1 and S2. LUNGS: Auscultation of lungs reveals clear breath sounds bilaterally. There is no wheezing. ABDOMEN: Soft and nontender. There is no rebound or guarding. EXTREMITIES: Shows no leg edema or calf tenderness. There is no cyanosis or clubbing. SKIN: Shows no rashes. NEUROLOGICAL: Shows no focal abnormalities. IMPRESSION: 1. Viral pneumonia and COVID-19 infection. 2. Gastroenteritis. 3. Acute kidney injury. PLAN: 1. The patient is okay for discharge. 2. Consider oxygen at home. 3. Complete Zithromax at home. 4. Follow up in 2 weeks. MD GARCÍA Meza/CHIQUIS /[id number]
--- NOTE | 2019-08-12 18:20 | NUR ---
patient discharged. prescriptions given to patient's daughter along with discharge instructions. answered all questions of patient and daughter. oxygen tank explained to patient's daughter who will assist. pt clear on follow up appt needed. patient wheeled off unit in mask to daughter's personal vehicle with all belongings.
--- NOTE | 2019-08-12 20:58 | Progress Note ---
DATE: SUBJECTIVE: Mr. Lynn is doing much better. REVIEW OF SYSTEMS: Negative. Discussed with the family. PHYSICAL EXAMINATION: GENERAL: He is currently alert and oriented. Does not seem to be in acute distress. VITAL SIGNS: Stable, afebrile. HEENT: He is not icteric. NECK: Supple. CHEST: Clear. HEART: S1 and S2. No S3, S4, or murmur. ABDOMEN: Soft. EXTREMITIES: No edema. SKIN: No rash. IMPRESSION: COVID-19, present on admission. The patient doing well, can be discharged home with albuterol 2 puffs q.8 hours p.r.n., vitamin C, vitamin D and zinc supplement. To call if he gets short of breath. Follow up as an outpatient. MD WAYLON Lubin/CHIQUIS /[id number]
--- NOTE | 2019-08-13 04:09 | Discharge Summary ---
ADDENDUM: I also did some patient education as well as the nursing staff with the patient. The patient is advised to wear a mask at all times. Be self-quarantine for least 2 weeks. Follow up with ID with repeat coronavirus PCR. Home O2 was arranged for him for discharge. I discussed with him in the event if he gets shortness of breath or any symptoms, please call 911 to come to the local ER. He verbalized understanding. MD DAVID Araujo/MODL /[id number]
--- NOTE | 2019-08-13 04:20 | Discharge Summary ---
FINAL DIAGNOSES: 1. Coronavirus disease 2019 pneumonia. 2. Cough and congestion secondary to coronavirus disease 2019 pneumonia. 3. Diarrhea secondary to coronavirus disease 2019 pneumonia. 4. Acute kidney injury-resolved. CONSULTANTS: Cardiology, Pulmonary, and ID. VITAL SIGNS: Temperature is 97.9, pulse 71, respiratory rate is 20, blood pressure 119/79, pulse ox 98% on room air. LABORATORY DATA: Labs show white count 6.6, hemoglobin is 14, hematocrit is 42, and platelets of 200. Chemistry; sodium 138, potassium 3.9, chloride 105, bicarb 23, anion gap of 13, BUN is 17, creatinine is 0.79, glucose is 86, calcium is 8.6. LFTs within normal range. Troponins were negative x3. Albumin 3.3. SEROLOGY: Coronavirus was positive. MICROBIOLOGY: None. IMAGING STUDIES: Chest x-ray, bilateral lung base opacities, most suggestive of scarring or atelectasis. Pneumonia is a possibility. Venous Dopplers: Negative for DVT of the bilateral lower extremities. A 2D echo was normal. HOSPITAL COURSE: An 83-year-old male, comes into the ED with complaints of cough, congestion, fever as well as shortness of breath. The patient was found to have coronavirus positive, was treated for COVID19 pneumonia. ID and Pulmonary were consulted. The patient was on multivitamins and IV antibiotic therapy. The patient improved throughout the hospital course. On 08/11/2019, the patient felt very lightheaded, in which discharge was canceled, in which Cardiology was consulted. Cardiac enzymes were negative. EKG showed no acute findings. A 2D echo was found to be normal. Venous Doppler was found to be negative. The patient did well. It seems like the patient was dehydrated. We encouraged oral hydration on discharge as well. The patient improved throughout the hospital course. The patient had home O2 arranged for him despite he was on room air prior to being discharged to home. The patient was eager to being discharged, in which I discussed with the consultants, Pulmonary, ID, and Cardiology and they all cleared the patient for discharge to home. On the day of discharge, vital signs were stable, labs reviewed and stable. The patient is seen and evaluated and examined thoroughly on the day of discharge with no other complaints. The patient verbalized understanding and agreed to plan of care to follow up accordingly as an outpatient with the primary care physician in 1 week, and ID and Pulmonary in 2 weeks' time. The patient was comfortable being discharged to home. I also spoke with the daughter and they agreed to be very aware and monitoring him very closely and they agreed to be discharged to home. MEDICATIONS: See med reconciliation form. DISPOSITION: Home. CONDITION: Stable. DIET: Heart healthy. In the event of any worsening symptoms, the patient was advised to come back to the ED for further evaluation. Discharge summary took greater than 35 minutes. MD DAVID Araujo/MODL /[id number]
== END 2019-08-12 18:36 | disposition home or self-care (01) | DRG 177 ==
LOC: ER 15:30 → ERHOLD 23:01 → IMCU 08-09 00:06
PROVIDERS: ADMIT Internal Medicine; ATTEND Internal Medicine
DX: U07.1 COVID-19 (principal); J12.9 Viral pneumonia, unspecified; J96.01 Acute respiratory failure with hypoxia; N17.9 Acute kidney failure, unspecified; A08.39 Other viral enteritis; I10 Essential (primary) hypertension; R73.03 Prediabetes
CPT/HCPCS: 36415; 36600; 71045; 80048; 80053; 82550; 82553; 82805; 83880; 84484; 85025; 87635; 93005; 93306; 93970; 99284; J0456; J0696; J1650; J7050